=== PATIENT | female | born 1960 | race Caucasian/White ===

== ENCOUNTER 2018-08-02 08:14 | Emergency (ER) | payer OTHER ==
[~2018-08-02] VITALS: Ht 167.6 cm; Wt 77.1 kg
[2018-08-02] MEDS ORDERED: MEDROLDOSEPACK PO (09:16)
[2018-08-02] MEDS ORDERED: ZPAK PO (09:16)
[2018-08-02 09:35] VITALS: BP 126/73
== END 2018-08-02 09:36 | disposition home or self-care (01) ==
LOC: ER 08:14
DX: J18.9 Pneumonia, unspecified organism (principal); F17.210 Nicotine dependence, cigarettes, uncomplicated; Z88.1 Allergy status to other antibiotic agents